=== PATIENT | female | born 1985 | race Caucasian/White ===

== ENCOUNTER 2017-04-13 16:32 | Inpatient (IN) | payer OTHER ==
[2017-04-13] MEDS: Lactated Ringers 1,000 ML IV SCH ×4 (17:35→23:02)
[2017-04-13] MEDS ORDERED: Nalbuphine 10 MG/1 ML Vial IVPUSH PRN ×2 (18:46→18:59)
[2017-04-13] MEDS ORDERED: Water For Irrigation,Sterile 1,000 ML Container IRR PRN ×2 (18:46→18:59)
[2017-04-13] MEDS ORDERED: Carboprost Tromethamine 250 MCG/1 ML Amp IM PRN ×2 (18:46→18:59)
[2017-04-13] MEDS ORDERED: Misoprostol 200 MCG Tab PO PRN ×2 (18:46→18:59)
[2017-04-13] MEDS ORDERED: Methylergonovine 0.2 MG/1 ML Amp IM PRN ×2 (18:46→18:59)
[2017-04-13] MEDS ORDERED: Lidocaine 1% 50 ML MDV INJECT PRN ×2 (18:46→18:59)
[2017-04-13] MEDS ORDERED: Terbutaline 1 MG/ML SDV SUBCUT PRN ×2 (18:46→18:59)
[2017-04-13] MEDS ORDERED: Sodium Chloride 0.9% 2.5 ML Syringe FLUSH PRN ×2 (18:46→18:59)
[2017-04-13] MEDS ORDERED: Butorphanol 1 MG/ML SDV IVPUSH PRN ×2 (18:46→18:59)
[2017-04-13] MEDS ORDERED: Sodium Chloride 0.9% 10 ML Syringe FLUSH PRN (18:46)
[2017-04-13] MEDS ORDERED: Oxytocin/Lactated Ringers 30 UNIT/500 ML BAG IV SCH ×4 (19:00)
[2017-04-13] MEDS ORDERED: Lactated Ringers 1,000 ML IV SCH (19:00)
[2017-04-13] MEDS ORDERED: Oxytocin/0.9 % Sodium Chloride 30 UNIT/500 ML BAG IV SCH (19:45)
[2017-04-13] MEDS ORDERED: fentaNYL 100 MCG/2 ML SDV ONE (20:59)
[2017-04-13] MEDS ORDERED: ePHEDrine 50 MG/ML SDV ONE (20:59)
[2017-04-13] MEDS ORDERED: Ropivacaine HCl/PF 100 ML ONE (21:00)
[2017-04-13] MEDS ORDERED: Ropivacaine 0.2% 2 MG/ML 20 ML SDV ONE (21:00)
--- NOTE | 2017-04-13 22:02 | PCM.PREANE ---
Preanesthetic Assessment - Anesthesia/Transfusion/Family Hx Anesthesia History: Prior Anesthesia Without Reaction (wisdom teeth) Family History of Anesthesia Reaction: No Transfusion History: No Prior Transfusion(s) - Review of Systems General: No Symptoms Pulmonary: No Symptoms Cardiovascular: No Symptoms Gastrointestinal: No Symptoms Neurological: No Symptoms - Physical Assessment NPO Status Date: 04/13/17 NPO Status Time: 21:57 (ice chips after epidural) O2 Sat by Pulse Oximetry: 95 Respiratory Rate: 16 Blood Pressure: 125/67 (see trace view) Height: 1.63 m Weight: 101.605 kg ASA Class: 2 Mental Status: Alert & Oriented x3 Airway Class: Mallampati = 2 Dentition: Reports: Normal Dentition Thyro-Mental Finger Breadths: 3 Mouth Opening Finger Breadths: 3 ROM/Head Extension: Full Lungs: Clear to Auscultation Cardiovascular: Regular Rate - Lab Values: Laboratory Last Values WBC 9.78 K/uL (4.0-11.0) 04/13/17 17:20 RBC 3.82 M/uL (4.30-5.90) L 04/13/17 17:20 Hgb 12.3 g/dL (12.0-16.0) 04/13/17 17:20 Hct 35.9 % (36.0-46.0) L 04/13/17 17:20 MCV 94.0 fL (80.0-98.0) 04/13/17 17:20 MCH 32.2 pg (27.0-32.0) H 04/13/17 17:20 MCHC 34.3 g/dL (31.0-37.0) 04/13/17 17:20 RDW Std Deviation 44.6 fl (28.0-62.0) 04/13/17 17:20 RDW Coeff of Ana Lilia 13 % (11.0-15.0) 04/13/17 17:20 Plt Count 164 K/uL (150-400) 04/13/17 17:20 MPV 10.90 fL (7.40-12.00) 04/13/17 17:20 Nucleated RBC % 0.0 /100WBC 04/13/17 17:20 Nucleated RBCs # 0 K/uL 04/13/17 17:20 INR 0.91 (0.86-1.11) 04/13/17 17:20 APTT 30.2 SEC (18.6-31.3) 04/13/17 17:20 Urine Color YELLOW 04/13/17 16:20 Urine Appearance CLEAR 04/13/17 16:20 Urine pH 6.0 (5.0-8.0) 04/13/17 16:20 Ur Specific [place] <= 1.005 (1.001-1.035) 04/13/17 16:20 Urine Protein NEGATIVE mg/dL (NEGATIVE) 04/13/17 16:20 Urine Glucose (UA) NEGATIVE mg/dL (NEGATIVE) 04/13/17 16:20 Urine Ketones NEGATIVE mg/dL (NEGATIVE) 04/13/17 16:20 Urine Occult Blood TRACE-INTACT (NEGATIVE) 04/13/17 16:20 Urine Nitrite NEGATIVE (NEGATIVE) 04/13/17 16:20 Urine Bilirubin NEGATIVE (NEGATIVE) 04/13/17 16:20 Urine Urobilinogen 0.2 EU/dL (<2.0) 04/13/17 16:20 Ur Leukocyte Esterase NEGATIVE (NEGATIVE) 04/13/17 16:20 Blood Type O POSITIVE 04/13/17 17:20 Antibody Screen NEGATIVE 04/13/17 17:20 - Allergies Allergies/Adverse Reactions: Allergies Allergy/AdvReac Type Severity Reaction Status Date / Time No Known Allergies Allergy Verified 04/13/17 16:31 - Blood Blood Available: Yes Product(s) Available: PRBC - Anesthesia Plan Pre-Op Medication Ordered: None - Acknowledgements Anesthesia Type Planned: Epidural Pt an Appropriate Candidate for the Planned Anesthesia: Yes Alternatives and Risks of Anesthesia Discussed w Pt/Guardian: Yes Pt/Guardian Understands and Agrees with Anesthesia Plan: Yes PreAnesthesia Questionnaire 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: , Spontaneous - CURRENT (IN HOUSE) MEDS Current Meds: Current Medications Butorphanol Tartrate (Stadol) 1 mg IVPUSH Q1H PRN PRN Reason: Pain Last Admin: 04/13/17 19:54 Dose: 1 mg Carboprost Tromethamine (Hemabate Ds) 250 mcg IM ASDIRECTED PRN PRN Reason: Post Hemorrhage Lactated Ringer's (Ringers, Lactated) 1,000 mls @ 150 mls/hr IV ASDIRECTED GOLD Last Admin: 04/13/17 21:32 Dose: 999 mls/hr Oxytocin/Sodium Chloride (Oxytocin 30 Unit/500 Ml-Ns) 30 unit in 500 mls @ 2 mls/hr IV TITRATE GOLD PRN Reason: Protocol Lidocaine HCl (Xylocaine 1%) 50 ml INJECT .ONCE PRN PRN Reason: Laceration repair Methylergonovine Maleate (Methergine) 0.2 mg IM ASDIRECTED PRN PRN Reason: Post Hemorrhage Misoprostol (Cytotec) 200 mcg PO .ONCE PRN PRN Reason: Post Hemorrhage Nalbuphine HCl (Nubain) 10 mg IVPUSH Q1H PRN PRN Reason: Pain (severe 7-10) Sodium Chloride (Saline Flush) 10 ml FLUSH ASDIRECTED PRN PRN Reason: Keep Vein Open Sodium Chloride (Saline Flush) 2.5 ml FLUSH ASDIRECTED PRN PRN Reason: Keep Vein Open Sterile Water (Sterile Water For Irrigation) 1,000 ml IRR ASDIRECTED PRN PRN Reason: delivery Terbutaline Sulfate (Brethine) 0.25 mg SUBCUT ASDIRECTED PRN PRN Reason: Tacysystole Discontinued Medications Butorphanol Tartrate (Stadol) 1 mg IVPUSH Q1H PRN PRN Reason: Pain Carboprost Tromethamine (Hemabate Ds) 250 mcg IM ASDIRECTED PRN PRN Reason: Post Hemorrhage Ephedrine Sulfate (Ephedrine Sulfate) Confirm Administered Dose 50 mg .ROUTE .STK-MED ONE Stop: 04/13/17 21:00 Fentanyl (Sublimaze) Confirm Administered Dose 300 mcg .ROUTE .STK-MED ONE Stop: 04/13/17 21:00 Oxytocin/Lactated Ringer's (Pitocin In Lr 30 Units/500 Ml) 30 unit in 500 mls @ 2 mls/hr IV TITRATE GOLD; 2 MUNITS/MIN PRN Reason: Protocol Lactated Ringer's (Ringers, Lactated) 1,000 mls @ 150 mls/hr IV ASDIRECTED GOLD Oxytocin/Lactated Ringer's (Pitocin In Lr 30 Units/500 Ml) 30 unit in 500 mls @ 999 mls/hr IV TITRATE GOLD PRN Reason: 999 MUNITS/MIN Stop: 04/13/17 19:31 Oxytocin/Lactated Ringer's (Pitocin In Lr 30 Units/500 Ml) 30 unit in 500 mls @ 2 mls/hr IV TITRATE GOLD; 2 MUNITS/MIN PRN Reason: Protocol Oxytocin/Lactated Ringer's (Pitocin In Lr 30 Units/500 Ml) 30 unit in 500 mls @ 999 mls/hr IV TITRATE GOLD PRN Reason: 999 MUNITS/MIN Stop: 04/13/17 19:31 Ropivacaine (Naropin 0.2%) Confirm Administered Dose 100 mls @ as directed .ROUTE .[facility] ONE Stop: 04/13/17 21:01 Lidocaine HCl (Xylocaine 1%) 50 ml INJECT .ONCE PRN PRN Reason: Laceration repair Methylergonovine Maleate (Methergine) 0.2 mg IM ASDIRECTED PRN PRN Reason: Post Hemorrhage Misoprostol (Cytotec) 200 mcg PO .ONCE PRN PRN Reason: Post Hemorrhage Nalbuphine HCl (Nubain) 10 mg IVPUSH Q1H PRN PRN Reason: Pain (severe 7-10) Ropivacaine (Naropin 0.2%) Confirm Administered Dose 20 ml .ROUTE .[facility] ONE Stop: 04/13/17 21:01 Sodium Chloride (Saline Flush) 10 ml FLUSH ASDIRECTED PRN PRN Reason: Keep Vein Open Sodium Chloride (Saline Flush) 2.5 ml FLUSH ASDIRECTED PRN PRN Reason: Keep Vein Open Sterile Water (Sterile Water For Irrigation) 1,000 ml IRR ASDIRECTED PRN PRN Reason: delivery Terbutaline Sulfate (Brethine) 0.25 mg SUBCUT ASDIRECTED PRN PRN Reason: Tacysystole
--- NOTE | 2017-04-13 22:12 | PCM.PRNOTE ---
- Free Text/Narrative Note: called to place epidural per patientt request for labor pain. pt interviewed, identified. Discussed epidural risks and expectations. These included nerve pain , nerve damage, bleeding, infection unsuccessful epidural placement. pt agrees. sitting up, sterile betadine prep times three with sterile drape. 1% lidocaine SQ at L4. os with small needle. L3 localized the same. #25 Touhy advanced with JEANNINE saline. no heme, no parasthesia. catheter easily placed taped 12 cm at skin , approximately 5 cm into space. test dose of 3 ml 1.5% lidocaine with epi 1:200 ,000 given with negative response. pt supine bolus dosed with 5 ml of 0.2% ropivicaine and 100 mcg fentanyl. level checked at T10 bilateral. Ropivicaine started at 10 ml/hr 0.2% with fentanyl 2 mcg/ml.
[2017-04-14] MEDS: Lactated Ringers 1,000 ML IV SCH ×4 (01:20→18:13)
[2017-04-14] MEDS ORDERED: fentaNYL 100 MCG/2 ML SDV ONE ×2 (02:06→05:05)
--- NOTE | 2017-04-14 02:45 | PCM.SN ---
- Free Text/Narrative Note: epidural level at approximately T6. infusion stopped for 30 minutes. Patient c/ o "cervix" pain. Fentanyl given via epidural. relief seen, but pt now c/o pressure low in perineal area. bp remains 96/40 asymptomatic. baby hr remains stable.
[2017-04-14] MEDS ORDERED: Lidocaine 2% 5 ML SDV ONE ×3 (04:21→05:49)
[2017-04-14] MEDS ORDERED: Oxytocin 10 Units/1 ML SDV ONE ×3 (04:21→05:46)
[2017-04-14] MEDS ORDERED: EPINEPHrine 1 MG/ML SDV ONE (04:21)
[2017-04-14] MEDS ORDERED: Propofol 200 MG/20 ML SDV ONE (04:22)
[2017-04-14] MEDS ORDERED: Morphine PF 10 MG/10 ML SDV ONE (04:56)
[2017-04-14] MEDS ORDERED: Midazolam 1 MG/ML 2 ML SDV ONE ×2 (05:10→05:24)
[2017-04-14] MEDS ORDERED: ceFAZolin 1 GM Vial ONE (05:11)
[2017-04-14] MEDS ORDERED: Phenylephrine/Normal Saline 100 MCG/ML 10 ML Syringe ONE (05:11)
[2017-04-14] MEDS ORDERED: ePHEDrine 50 MG/ML SDV ONE (05:11)
[2017-04-14] MEDS ORDERED: fentaNYL 100 MCG/2 ML SDV IVPUSH PRN (05:21)
[2017-04-14] MEDS ORDERED: Acetaminophen/oxyCODONE 325-5 MG Tab PO PRN ×3 (05:21→18:24)
[2017-04-14] MEDS ORDERED: Nalbuphine 10 MG/1 ML Vial IVPUSH PRN (05:21)
[2017-04-14] MEDS ORDERED: diphenhydrAMINE 50 MG/ML SDV IVPUSH PRN ×2 (05:21→07:05)
[2017-04-14] MEDS ORDERED: Ketamine 500 mg/10 ML MDV ONE (05:47)
[2017-04-14] MEDS ORDERED: Meperidine PF 25 MG/ML Syringe IM ONE (06:36)
[2017-04-14] MEDS ORDERED: Sodium Chloride 0.9% 20 ML ONE (06:58)
--- NOTE | 2017-04-14 07:02 | PCM.POSTAN ---
POST ANESTHESIA ASSESSMENT - MENTAL STATUS Mental Status: Alert - VITAL SIGNS Pulse Rate: 81 SaO2: 91 Resp Rate: 14 Blood Pressure: 108/53 Temperature: 37.1 C - RESPIRATORY Respiratory Status: Respiratory Rate WNL - CARDIOVASCULAR CV Status: Pulse Rate WNL - GASTROINTESTINAL GI Status: No Symptoms - POST OP HYDRATION Hydration Status: Adequate & Stable (pain level 1/10 with iv demerol. shaking also diminished)
[2017-04-14] MEDS ORDERED: Ondansetron 4 MG/2 ML SDV IV PRN (07:05)
[2017-04-14] MEDS ORDERED: Bisacodyl 10 MG Supp RECTAL PRN (07:05)
[2017-04-14] MEDS ORDERED: Lanolin 100% Cream 7 GM Tube TOP PRN (07:05)
[2017-04-14] MEDS: Ketorolac 30 MG/ML SDV IVPUSH SCH ×3 (07:48→19:59)
--- NOTE | 2017-04-14 12:12 | PCM.SN ---
<Ebenezer Han - Last Filed: 04/14/17 12:07> - Free Text/Narrative Note: S: Patient's pain has been well controlled with Toradal, has tolerated clear liquid and crackers without nausea. O: VS WNL, H/H 10.7/31.4 A: 31 y.o. female, 39/3 EGA, caesarean delivery P: Routine cares, dc andino per unit routine, continue current pain regimen, continue to support frequent ambulation and <Cyrus Boyce - Last Filed: 04/14/17 16:54> - Free Text/Narrative Note: Patient is s/p primary section today secondary to cat 2FHT. Patient also had early DIC probably secondary to concealed placenta abruption. Patient had hemorrhage with EBL estimate of 1500. PPH controlled with pitocin and uterine massage. Postop CBC stable from preop. APTT slightly elevated, Fibrinogen - decreasing slightly and . Platelets intially 138 preop , post op 140s. 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 ambulating. , tolerating regular diet. Plan: Regular diet Encourage ambulation Andino to monitor urine output IVF Pain control
[2017-04-14] MEDS: cefOXitin 2 GM in Premix Bag 1 BAG IV SCH ×2 (12:14→17:47)
--- NOTE | 2017-04-14 14:59 | PCM48HPAN ---
Post Anesthesia Note - EVALUATION WITHIN 48HRS OF ANESTHETIC Vital Signs in Normal Range: Yes Patient Participated in Evaluation: Yes Respiratory Function Stable: Yes Airway Patent: Yes Cardiovascular Function Stable: Yes Hydration Status Stable: Yes Pain Control Satisfactory: Yes Nausea and Vomiting Control Satisfactory: Yes Mental Status Recovered: Yes - COMMENTS/OBSERVATIONS Free Text/Narrative:: pt has been ambulating. pain tolerable
[2017-04-14] MEDS ORDERED: Acetaminophen/oxyCODONE 325-5 MG Tab ONE (18:27)
[2017-04-14] MEDS: Acetaminophen/oxyCODONE 325-5 MG Tab PO PRN (18:28)
[2017-04-14] MEDS: Docusate Sodium 100 MG Cap PO SCH ×2 (19:58→20:00)
[2017-04-15] MEDS: Ketorolac 30 MG/ML SDV IVPUSH SCH ×2 (01:48→07:56)
--- NOTE | 2017-04-15 04:15 | OR ---
DATE OF PROCEDURE: 04/14/2017 SURGEON: AMANDA RÍOS SMASHER: GAURANG FRANCES PREOPERATIVE DIAGNOSIS: A 31-year-old G3 P-1-0-1-1, at 39 weeks 2 days for induction of labor secondary to category 2 heart tracing, suspected placental abruption and probable early disseminated intravascular coagulation. POSTOPERATIVE DIAGNOSIS: A 31-year-old, now para 2, status post primary lower section for category 2 heart tracing, also with probable placental abruption and early disseminated intravascular coagulation. PROCEDURE: Primary lower transverse section. SMASHER: Gaurang. ESTIMATED BLOOD LOSS: 1500. COMPLICATIONS: hemorrhage. INTRAVENOUS FLUIDS: 1900. URINE OUTPUT: 800. FINDINGS: A live male delivered at 5:05 a.m., scores were 9 and 9, weight was 3890 grams. Placenta with 3-vessel cord. HISTORY: A 31-year-old G3 P-1-0-1-1, presented at 39 weeks 2 days complaining of vaginal spotting. The patient was noted to have late decelerations on tracing and as a result was admitted for induction of labor for category 2 heart tracing. Induction of labor was started at 5:43 p.m. The patient was noted to be 1, 60, -4. She had a Rodriguez bulb placed and was subsequently 4, 80, -2 at 8:45 p.m. The patient then made change to 6, 80, -3 at 3:00 a.m. and Pitocin was started after the Rodriguez bulb came out. The patient was noted to have late decelerations. As a result, Pitocin was held and tracing recovered, but however started again. The patient also had serial CBCs to rule out placental abruption or concealed abruption, and Hb was noted to be declining from 12.3 to 11.2 to 10.4. Platelet also decreased from 164 to 150 to 138. APTT increased from 30 to 31.6 to 32.1. The blood pressure was ranging from 90s to 120 over 50s to 60. The patient had to get multiple doses of IV boluses to sustain blood pressure. As a result of this and category 2 heart tracing, the patient was informed of the benefit of section to improve maternal and well being. The patient accepted for the procedure. DESCRIPTION OF PROCEDURE: The patient was taken to the operating room and the epidural was topped up. The patient was prepared and draped in the sterile fashion. A Pfannenstiel skin incision was made with scalpel and carried down to the fascia with Bovie. The fascia was grasped with the Toby clamp and from the rectus muscles superiorly and inferiorly. The rectus muscle was then in the midline down to the pubic symphysis. The peritoneum was then entered in bluntly and pulled upward to expose the bladder reflection. The Michi retractor was then placed in to expose the bladder and the uterus. A uterine incision was made and it was extended upwards and downwards. The fetus was then brought to the incision and it was delivered with the aid of fundal pressure. The cord was clamped and cut. 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 The placenta was then delivered intact and the Pitocin was started for uterine tone. The uterus was sutured in 2 layers and hemostasis was noted. Then, the gutters were cleaned. The peritoneum was then sutured with 2-0 Vicryl. Then, the fascia was also sutured with 0 Vicryl in a continuous fashion. The subcutaneous fat was then sutured also, and the skin was closed with 3-0 Vicryl on a Kofi needle, and all instrument and pad counts were correct x2. Dr. Ríos was present for the entire procedure. The patient was taken to the recovery room in stable condition. PAMELA LINARES /[id number]
--- NOTE | 2017-04-15 07:26 | PCM.PNPP ---
<HanEbenezer - Last Filed: 04/15/17 07:27> - General Info Date of Service: 04/15/17 Admission Dx/Problem (Free Text): 31 y.o. female, EGA 39/2, induction of delivery secondary to category 2 heart tracing, suspected placental abruption, probable early DIC, caesarean delivery Subjective Update: Pt is feeling well today. Having some pain with ambulation but is well controlled with Toradol. Pt is without difficulty. Pt has voided but has not had a bowel movement. Pt is passing flatus. Non foul smelling lochia is decreasing. Pt denies fever, chills, shortness of breath, and chest pain. Functional Status: Reports: Pain Controlled, Tolerating Diet, Ambulating, Urinating - Review of Systems General: Reports: No Symptoms Pulmonary: Reports: No Symptoms Cardiovascular: Reports: No Symptoms Gastrointestinal: Reports: No Symptoms Genitourinary: Reports: No Symptoms - General Info Date of Service: 04/15/17 - Patient Data Vital Signs - Most Recent: Last Vital Signs Temp 36.6 C 04/15/17 03:45 Pulse 92 04/15/17 03:45 Resp 16 04/15/17 05:00 BP 100/65 04/15/17 03:45 Pulse Ox 95 04/15/17 05:00 Weight - Most Recent: 224 lb I&O - Last 24 Hours: Intake & Output 04/14/17 04/15/17 04/15/17 22:59 06:59 14:59 Intake Total 1850 1780 Output Total 2500 1300 Balance -650 480 Lab Results - Last 24 Hours: Laboratory Results - last 24 hr 04/14/17 04/14/17 04/14/17 Range/Units 16:06 16:06 16:06 WBC 12.91 H (4.0-11.0) K/uL RBC 2.85 L (4.30-5.90) M/uL Hgb 9.1 L (12.0-16.0) g/dL Hct 27.1 L (36.0-46.0) % MCV 95.1 (80.0-98.0) fL MCH 31.9 (27.0-32.0) pg MCHC 33.6 (31.0-37.0) g/dL RDW Std Deviation 45.8 (28.0-62.0) fl RDW Coeff of Ana Lilia 13 (11.0-15.0) % Plt Count 137 L (150-400) K/uL MPV 10.80 (7.40-12.00) fL Nucleated RBC % 0.0 /100WBC Nucleated RBCs # 0 K/uL INR 1.01 (0.86-1.11) APTT 37.7 H (18.6-31.3) SEC Fibrinogen 324 (215-411) mg/dL 04/15/17 Range/Units 05:37 WBC (4.0-11.0) K/uL RBC (4.30-5.90) M/uL Hgb 9.1 L (12.0-16.0) g/dL Hct 27.0 L (36.0-46.0) % MCV (80.0-98.0) fL MCH (27.0-32.0) pg MCHC (31.0-37.0) g/dL RDW Std Deviation (28.0-62.0) fl RDW Coeff of Ana Lilia (11.0-15.0) % Plt Count (150-400) K/uL MPV (7.40-12.00) fL Nucleated RBC % /100WBC Nucleated RBCs # K/uL INR (0.86-1.11) APTT (18.6-31.3) SEC Fibrinogen (215-411) mg/dL Med Orders - Current: Current Medications Bisacodyl (Dulcolax) 10 mg RECTAL .ONCE PRN PRN Reason: Constipation Butorphanol Tartrate (Stadol) 1 mg IVPUSH Q1H PRN PRN Reason: Pain Last Admin: 04/13/17 19:54 Dose: 1 mg Carboprost Tromethamine (Hemabate Ds) 250 mcg IM ASDIRECTED PRN PRN Reason: Post Hemorrhage Diphenhydramine HCl (Benadryl) 25 mg IVPUSH Q6H PRN PRN Reason: Itching or Nausea Docusate Sodium (Colace) 100 mg PO BID GOLD Last Admin: 04/14/17 20:00 Dose: 100 mg Emollient Ointment (Lansinoh Hpa) 0 gm TOP ASDIRECTED PRN PRN Reason: Sore Nipples Last Admin: 04/15/17 01:47 Dose: 1 tube Lactated Ringer's (Ringers, Lactated) 1,000 mls @ 150 mls/hr IV ASDIRECTED [facility] Last Admin: 04/14/17 02:41 Dose: 150 mls/hr Oxytocin/Sodium Chloride (Oxytocin 30 Unit/500 Ml-Ns) 30 unit in 500 mls @ 2 mls/hr IV TITRATE [facility] PRN Reason: Protocol Last Titration: 04/14/17 03:52 Dose: 0 mls/hr, 0 mls/hr Lactated Ringer's (Ringers, Lactated) 1,000 mls @ 125 mls/hr IV ASDIRECTED [facility] Last Admin: 04/14/17 18:13 Dose: 125 mls/hr Ibuprofen (Motrin) 800 mg PO Q8H PRN PRN Reason: mild pain or fever Ketorolac Tromethamine (Toradol) 30 mg IVPUSH Q6H [facility] Stop: 04/15/17 08:01 Last Admin: 04/15/17 01:48 Dose: 30 mg Lidocaine HCl (Xylocaine 1%) 50 ml INJECT .ONCE PRN PRN Reason: Laceration repair Methylergonovine Maleate (Methergine) 0.2 mg IM ASDIRECTED PRN PRN Reason: Post Hemorrhage Misoprostol (Cytotec) 200 mcg PO .ONCE PRN PRN Reason: Post Hemorrhage Nalbuphine HCl (Nubain) 10 mg IVPUSH Q1H PRN PRN Reason: Pain (severe 7-10) Ondansetron HCl (Zofran) 4 mg IV Q4H PRN PRN Reason: Nausea/Vomiting Oxycodone/Acetaminophen (Percocet 325-5 Mg) 2 tab PO Q4H PRN PRN Reason: Pain (moderate 4-6) Oxycodone/Acetaminophen (Percocet 325-5 Mg) 1 tab PO Q4H PRN PRN Reason: Pain (moderate 4-6) Last Admin: 04/14/17 18:28 Dose: 1 tab Oxycodone/Acetaminophen (Percocet 325-5 Mg) 2 tab PO Q4H PRN PRN Reason: Pain Sodium Chloride (Saline Flush) 10 ml FLUSH ASDIRECTED PRN PRN Reason: Keep Vein Open Sodium Chloride (Saline Flush) 2.5 ml FLUSH ASDIRECTED PRN PRN Reason: Keep Vein Open Sterile Water (Sterile Water For Irrigation) 1,000 ml IRR ASDIRECTED PRN PRN Reason: delivery Terbutaline Sulfate (Brethine) 0.25 mg SUBCUT ASDIRECTED PRN PRN Reason: Tacysystole Discontinued Medications Butorphanol Tartrate (Stadol) 1 mg IVPUSH Q1H PRN PRN Reason: Pain Carboprost Tromethamine (Hemabate Ds) 250 mcg IM ASDIRECTED PRN PRN Reason: Post Hemorrhage Cefazolin Sodium (Ancef) Confirm Administered Dose 2 gm .ROUTE .STK-MED ONE Stop: 04/14/17 05:12 Diphenhydramine HCl (Benadryl) 25 mg IVPUSH Q4H PRN PRN Reason: Itching Stop: 04/15/17 05:22 Ephedrine Sulfate (Ephedrine Sulfate) Confirm Administered Dose 50 mg .ROUTE .STK-MED ONE Stop: 04/13/17 21:00 Ephedrine Sulfate (Ephedrine Sulfate) Confirm Administered Dose 50 mg .ROUTE .STK-MED ONE Stop: 04/14/17 05:12 Epinephrine HCl (Adrenalin 1:1000) Confirm Administered Dose 1 mg .ROUTE .STK- MED ONE Stop: 04/14/17 04:22 Fentanyl (Sublimaze) Confirm Administered Dose 300 mcg .ROUTE .STK-MED ONE Stop: 04/13/17 21:00 Fentanyl (Sublimaze) Confirm Administered Dose 100 mcg .ROUTE .STK-MED ONE Stop: 04/14/17 02:07 Fentanyl (Sublimaze) Confirm Administered Dose 100 mcg .ROUTE .STK-MED ONE Stop: 04/14/17 05:06 Fentanyl (Sublimaze) 50 mcg IVPUSH Q5M PRN PRN Reason: Pain (severe 7-10) Stop: 04/15/17 05:22 Last Admin: 04/14/17 10:41 Dose: 50 mcg Oxytocin/Lactated Ringer's (Pitocin In Lr 30 Units/500 Ml) 30 unit in 500 mls @ 2 mls/hr IV TITRATE GOLD; 2 MUNITS/MIN PRN Reason: Protocol Lactated Ringer's (Ringers, Lactated) 1,000 mls @ 150 mls/hr IV ASDIRECTED GOLD Oxytocin/Lactated Ringer's (Pitocin In Lr 30 Units/500 Ml) 30 unit in 500 mls @ 999 mls/hr IV TITRATE GOLD PRN Reason: 999 MUNITS/MIN Stop: 04/13/17 19:31 Oxytocin/Lactated Ringer's (Pitocin In Lr 30 Units/500 Ml) 30 unit in 500 mls @ 2 mls/hr IV TITRATE GOLD; 2 MUNITS/MIN PRN Reason: Protocol Oxytocin/Lactated Ringer's (Pitocin In Lr 30 Units/500 Ml) 30 unit in 500 mls @ 999 mls/hr IV TITRATE GOLD PRN Reason: 999 MUNITS/MIN Stop: 04/13/17 19:31 Ropivacaine (Naropin 0.2%) Confirm Administered Dose 100 mls @ as directed .ROUTE .STK-MED ONE Stop: 04/13/17 21:01 Sodium Chloride (Normal Saline) Confirm Administered Dose 20 mls @ as directed .ROUTE .STK-MED ONE Stop: 04/14/17 06:59 Cefoxitin Sodium 2 gm/ Premix 50 mls @ 100 mls/hr IV Q6H GOLD Stop: 04/14/17 18:00 Last Admin: 04/14/17 17:47 Dose: 100 mls/hr Ketamine HCl (Ketalar) Confirm Administered Dose 500 mg .ROUTE .STK-MED ONE Stop: 04/14/17 05:48 Lidocaine (Xylocaine-Mpf 2%) Confirm Administered Dose 15 ml .ROUTE .STK-MED ONE Stop: 04/14/17 04:22 Lidocaine (Xylocaine-Mpf 2%) Confirm Administered Dose 5 ml .ROUTE .STK-MED ONE Stop: 04/14/17 05:12 Lidocaine (Xylocaine-Mpf 2%) Confirm Administered Dose 5 ml .ROUTE .STK-MED ONE Stop: 04/14/17 05:50 Lidocaine HCl (Xylocaine 1%) 50 ml INJECT .ONCE PRN PRN Reason: Laceration repair Meperidine HCl (Demerol) 25 mg IM ONETIME ONE Stop: 04/14/17 06:37 Last Admin: 04/14/17 06:43 Dose: 25 mg Methylergonovine Maleate (Methergine) 0.2 mg IM ASDIRECTED PRN PRN Reason: Post Hemorrhage Midazolam HCl (Versed 1 Mg/Ml) Confirm Administered Dose 2 mg .ROUTE .STK-MED ONE Stop: 04/14/17 05:11 Midazolam HCl (Versed 1 Mg/Ml) Confirm Administered Dose 2 mg .ROUTE .STK-MED ONE Stop: 04/14/17 05:25 Misoprostol (Cytotec) 200 mcg PO .ONCE PRN PRN Reason: Post Hemorrhage Morphine Sulfate (Duramorph Pf) Confirm Administered Dose 10 mg .ROUTE .STK-MED ONE Stop: 04/14/17 04:57 Nalbuphine HCl (Nubain) 10 mg IVPUSH Q1H PRN PRN Reason: Pain (severe 7-10) Nalbuphine HCl (Nubain) 5 mg IVPUSH Q3H PRN PRN Reason: Pruritis Stop: 04/15/17 05:22 Oxycodone/Acetaminophen (Percocet 325-5 Mg) 1 tab PO ONETIME PRN PRN Reason: Pain (moderate 4-6) Oxycodone/Acetaminophen (Percocet 325-5 Mg) 1 tab PO Q4H PRN PRN Reason: Pain (moderate 4-6) Oxycodone/Acetaminophen (Percocet 325-5 Mg) Confirm Administered Dose 1 tab .ROUTE .STK-MED ONE Stop: 04/14/17 18:28 Last Admin: 04/14/17 19:24 Dose: Not Given Oxytocin (Pitocin) Confirm Administered Dose 20 unit .ROUTE .STK-MED ONE Stop: 04/14/17 04:22 Oxytocin (Pitocin) Confirm Administered Dose 10 unit .ROUTE .STK-MED ONE Stop: 04/14/17 05:20 Oxytocin (Pitocin) Confirm Administered Dose 20 unit .ROUTE .STK-MED ONE Stop: 04/14/17 05:47 Phenylephrine HCl (Phenylephrine In Ns 100 Mcg/Ml) Confirm Administered Dose 1 mg .ROUTE .STK-MED ONE Stop: 04/14/17 05:12 Propofol (Diprivan 20 Ml) Confirm Administered Dose 200 mg .ROUTE .STK-MED ONE Stop: 04/14/17 04:23 Ropivacaine (Naropin 0.2%) Confirm Administered Dose 20 ml .ROUTE .STK-MED ONE Stop: 04/13/17 21:01 Sodium Chloride (Saline Flush) 10 ml FLUSH ASDIRECTED PRN PRN Reason: Keep Vein Open Sodium Chloride (Saline Flush) 2.5 ml FLUSH ASDIRECTED PRN PRN Reason: Keep Vein Open Sterile Water (Sterile Water For Irrigation) 1,000 ml IRR ASDIRECTED PRN PRN Reason: delivery Terbutaline Sulfate (Brethine) 0.25 mg SUBCUT ASDIRECTED PRN PRN Reason: Tacysystole Tranexamic Acid (Cyklokapron) 2,000 mg .ROUTE .STK-MED ONE Stop: 04/14/17 05:06 - Interaction Disposition, : in Room with Family Interaction: Holding Infant Feeding: Breastfed Infant; Nursed Well Support Person: Significant Other - Recovery Exam Fundal Tone: Firm Fundal Level: 1 Fingerbreadths Below Umbilicus Fundal Placement: Midline Lochia Amount: Scant Lochia Color: Rubra/Red Perineum Description: Intact, Minimal Bruising/Swelling Episiotomy/Laceration: None Bladder Status: Voiding Urinary Elimination: Voided - Exam General: Alert, Oriented Lungs: Clear to Auscultation, Normal Respiratory Effort. No: Rales, Rhonchi, Rub Cardiovascular: Regular Rate, Regular Rhythm. No: Murmurs, Gallops, Rubs GI/Abdominal Exam: Normal Bowel Sounds, Soft (Uterus firm, midline, fundus 1cm below umbilucs) Wound/Incisions: Dressing Dry and Intact - Problem List & Annotations (1) delivery due to maternal disorder SNOMED Code(s): 959158341 Code(s): XTM4690 - Status: Acute Current Visit: Yes - Problem List Review Problem List Initiated/Reviewed/Updated: Yes - Assessment Assessment:: 31 y.o. female EGA 39/2 caesarean delivery secondary to category 2 heart tracing, suspected placental abruption, and probable early DIC, postop day #1 Pain is well controlled Tolerating diet well Voiding H/H and platelets stable - Plan Plan:: Continue routine cares. Daily H/H and platelets. Monitor vital signs. Continue current pain management. Continue to support frequent ambulation and . Colace for constipation. <Rosa Ng - Last Filed: 04/15/17 13:02> - Patient Data Vital Signs - Most Recent: Last Vital Signs Temp 36.9 C 04/15/17 07:44 Pulse 95 04/15/17 07:44 Resp 18 04/15/17 07:44 BP 94/60 04/15/17 07:44 Pulse Ox 98 04/15/17 07:44 I&O - Last 24 Hours: Intake & Output 04/14/17 04/15/17 04/15/17 22:59 06:59 14:59 Intake Total 1850 1780 Output Total 2500 1300 300 Balance -650 480 -300 Lab Results - Last 24 Hours: Laboratory Results - last 24 hr 04/14/17 04/14/17 04/14/17 Range/Units 16:06 16:06 16:06 WBC 12.91 H (4.0-11.0) K/uL RBC 2.85 L (4.30-5.90) M/uL Hgb 9.1 L (12.0-16.0) g/dL Hct 27.1 L (36.0-46.0) % MCV 95.1 (80.0-98.0) fL MCH 31.9 (27.0-32.0) pg MCHC 33.6 (31.0-37.0) g/dL RDW Std Deviation 45.8 (28.0-62.0) fl RDW Coeff of Ana Lilia 13 (11.0-15.0) % Plt Count 137 L (150-400) K/uL MPV 10.80 (7.40-12.00) fL Nucleated RBC % 0.0 /100WBC Nucleated RBCs # 0 K/uL INR 1.01 (0.86-1.11) APTT 37.7 H (18.6-31.3) SEC Fibrinogen 324 (215-411) mg/dL 04/15/17 Range/Units 05:37 WBC (4.0-11.0) K/uL RBC (4.30-5.90) M/uL Hgb 9.1 L (12.0-16.0) g/dL Hct 27.0 L (36.0-46.0) % MCV (80.0-98.0) fL MCH (27.0-32.0) pg MCHC (31.0-37.0) g/dL RDW Std Deviation (28.0-62.0) fl RDW Coeff of Ana Lilia (11.0-15.0) % Plt Count (150-400) K/uL MPV (7.40-12.00) fL Nucleated RBC % /100WBC Nucleated RBCs # K/uL INR (0.86-1.11) APTT (18.6-31.3) SEC Fibrinogen (215-411) mg/dL Med Orders - Current: Current Medications Bisacodyl (Dulcolax) 10 mg RECTAL .ONCE PRN PRN Reason: Constipation Butorphanol Tartrate (Stadol) 1 mg IVPUSH Q1H PRN PRN Reason: Pain Last Admin: 04/13/17 19:54 Dose: 1 mg Carboprost Tromethamine (Hemabate Ds) 250 mcg IM ASDIRECTED PRN PRN Reason: Post Hemorrhage Diphenhydramine HCl (Benadryl) 25 mg IVPUSH Q6H PRN PRN Reason: Itching or Nausea Docusate Sodium (Colace) 100 mg PO BID [facility] Last Admin: 04/15/17 08:47 Dose: 100 mg Emollient Ointment (Lansinoh Hpa) 0 gm TOP ASDIRECTED PRN PRN Reason: Sore Nipples Last Admin: 04/15/17 01:47 Dose: 1 tube Lactated Ringer's (Ringers, Lactated) 1,000 mls @ 150 mls/hr IV ASDIRECTED [facility] Last Admin: 04/14/17 02:41 Dose: 150 mls/hr Oxytocin/Sodium Chloride (Oxytocin 30 Unit/500 Ml-Ns) 30 unit in 500 mls @ 2 mls/hr IV TITRATE [facility] PRN Reason: Protocol Last Titration: 04/14/17 03:52 Dose: 0 mls/hr, 0 mls/hr Lactated Ringer's (Ringers, Lactated) 1,000 mls @ 125 mls/hr IV ASDIRECTED [facility] Last Admin: 04/14/17 18:13 Dose: 125 mls/hr Ibuprofen (Motrin) 800 mg PO Q8H PRN PRN Reason: mild pain or fever Lidocaine HCl (Xylocaine 1%) 50 ml INJECT .ONCE PRN PRN Reason: Laceration repair Methylergonovine Maleate (Methergine) 0.2 mg IM ASDIRECTED PRN PRN Reason: Post Hemorrhage Misoprostol (Cytotec) 200 mcg PO .ONCE PRN PRN Reason: Post Hemorrhage Nalbuphine HCl (Nubain) 10 mg IVPUSH Q1H PRN PRN Reason: Pain (severe 7-10) Ondansetron HCl (Zofran) 4 mg IV Q4H PRN PRN Reason: Nausea/Vomiting Oxycodone/Acetaminophen (Percocet 325-5 Mg) 2 tab PO Q4H PRN PRN Reason: Pain (moderate 4-6) Oxycodone/Acetaminophen (Percocet 325-5 Mg) 1 tab PO Q4H PRN PRN Reason: Pain (moderate 4-6) Last Admin: 04/14/17 18:28 Dose: 1 tab Oxycodone/Acetaminophen (Percocet 325-5 Mg) 2 tab PO Q4H PRN PRN Reason: Pain Sodium Chloride (Saline Flush) 10 ml FLUSH ASDIRECTED PRN PRN Reason: Keep Vein Open Last Admin: 04/15/17 07:58 Dose: 10 ml Sodium Chloride (Saline Flush) 2.5 ml FLUSH ASDIRECTED PRN PRN Reason: Keep Vein Open Sterile Water (Sterile Water For Irrigation) 1,000 ml IRR ASDIRECTED PRN PRN Reason: delivery Terbutaline Sulfate (Brethine) 0.25 mg SUBCUT ASDIRECTED PRN PRN Reason: Tacysystole Discontinued Medications Butorphanol Tartrate (Stadol) 1 mg IVPUSH Q1H PRN PRN Reason: Pain Carboprost Tromethamine (Hemabate Ds) 250 mcg IM ASDIRECTED PRN PRN Reason: Post Hemorrhage Cefazolin Sodium (Ancef) Confirm Administered Dose 2 gm .ROUTE .STK-MED ONE Stop: 04/14/17 05:12 Diphenhydramine HCl (Benadryl) 25 mg IVPUSH Q4H PRN PRN Reason: Itching Stop: 04/15/17 05:22 Ephedrine Sulfate (Ephedrine Sulfate) Confirm Administered Dose 50 mg .ROUTE .STK-MED ONE Stop: 04/13/17 21:00 Ephedrine Sulfate (Ephedrine Sulfate) Confirm Administered Dose 50 mg .ROUTE .STK-MED ONE Stop: 04/14/17 05:12 Epinephrine HCl (Adrenalin 1:1000) Confirm Administered Dose 1 mg .ROUTE .STK- MED ONE Stop: 04/14/17 04:22 Fentanyl (Sublimaze) Confirm Administered Dose 300 mcg .ROUTE .STK-MED ONE Stop: 04/13/17 21:00 Fentanyl (Sublimaze) Confirm Administered Dose 100 mcg .ROUTE .STK-MED ONE Stop: 04/14/17 02:07 Fentanyl (Sublimaze) Confirm Administered Dose 100 mcg .ROUTE .STK-MED ONE Stop: 04/14/17 05:06 Fentanyl (Sublimaze) 50 mcg IVPUSH Q5M PRN PRN Reason: Pain (severe 7-10) Stop: 04/15/17 05:22 Last Admin: 04/14/17 10:41 Dose: 50 mcg Oxytocin/Lactated Ringer's (Pitocin In Lr 30 Units/500 Ml) 30 unit in 500 mls @ 2 mls/hr IV TITRATE GOLD; 2 MUNITS/MIN PRN Reason: Protocol Lactated Ringer's (Ringers, Lactated) 1,000 mls @ 150 mls/hr IV ASDIRECTED GOLD Oxytocin/Lactated Ringer's (Pitocin In Lr 30 Units/500 Ml) 30 unit in 500 mls @ 999 mls/hr IV TITRATE GOLD PRN Reason: 999 MUNITS/MIN Stop: 04/13/17 19:31 Oxytocin/Lactated Ringer's (Pitocin In Lr 30 Units/500 Ml) 30 unit in 500 mls @ 2 mls/hr IV TITRATE GOLD; 2 MUNITS/MIN PRN Reason: Protocol Oxytocin/Lactated Ringer's (Pitocin In Lr 30 Units/500 Ml) 30 unit in 500 mls @ 999 mls/hr IV TITRATE GOLD PRN Reason: 999 MUNITS/MIN Stop: 04/13/17 19:31 Ropivacaine (Naropin 0.2%) Confirm Administered Dose 100 mls @ as directed .ROUTE .STK-MED ONE Stop: 04/13/17 21:01 Sodium Chloride (Normal Saline) Confirm Administered Dose 20 mls @ as directed .ROUTE .STK-MED ONE Stop: 04/14/17 06:59 Cefoxitin Sodium 2 gm/ Premix 50 mls @ 100 mls/hr IV Q6H GOLD Stop: 04/14/17 18:00 Last Admin: 04/14/17 17:47 Dose: 100 mls/hr Ketamine HCl (Ketalar) Confirm Administered Dose 500 mg .ROUTE .STK-MED ONE Stop: 04/14/17 05:48 Ketorolac Tromethamine (Toradol) 30 mg IVPUSH Q6H GOLD Stop: 04/15/17 08:01 Last Admin: 04/15/17 07:56 Dose: 30 mg Lidocaine (Xylocaine-Mpf 2%) Confirm Administered Dose 15 ml .ROUTE .STK-MED ONE Stop: 04/14/17 04:22 Lidocaine (Xylocaine-Mpf 2%) Confirm Administered Dose 5 ml .ROUTE .STK-MED ONE Stop: 04/14/17 05:12 Lidocaine (Xylocaine-Mpf 2%) Confirm Administered Dose 5 ml .ROUTE .STK-MED ONE Stop: 04/14/17 05:50 Lidocaine HCl (Xylocaine 1%) 50 ml INJECT .ONCE PRN PRN Reason: Laceration repair Meperidine HCl (Demerol) 25 mg IM ONETIME ONE Stop: 04/14/17 06:37 Last Admin: 04/14/17 06:43 Dose: 25 mg Methylergonovine Maleate (Methergine) 0.2 mg IM ASDIRECTED PRN PRN Reason: Post Hemorrhage Midazolam HCl (Versed 1 Mg/Ml) Confirm Administered Dose 2 mg .ROUTE .STK-MED ONE Stop: 04/14/17 05:11 Midazolam HCl (Versed 1 Mg/Ml) Confirm Administered Dose 2 mg .ROUTE .STK-MED ONE Stop: 04/14/17 05:25 Misoprostol (Cytotec) 200 mcg PO .ONCE PRN PRN Reason: Post Hemorrhage Morphine Sulfate (Duramorph Pf) Confirm Administered Dose 10 mg .ROUTE .STK-MED ONE Stop: 04/14/17 04:57 Nalbuphine HCl (Nubain) 10 mg IVPUSH Q1H PRN PRN Reason: Pain (severe 7-10) Nalbuphine HCl (Nubain) 5 mg IVPUSH Q3H PRN PRN Reason: Pruritis Stop: 04/15/17 05:22 Oxycodone/Acetaminophen (Percocet 325-5 Mg) 1 tab PO ONETIME PRN PRN Reason: Pain (moderate 4-6) Oxycodone/Acetaminophen (Percocet 325-5 Mg) 1 tab PO Q4H PRN PRN Reason: Pain (moderate 4-6) Oxycodone/Acetaminophen (Percocet 325-5 Mg) Confirm Administered Dose 1 tab .ROUTE .STK-MED ONE Stop: 04/14/17 18:28 Last Admin: 04/14/17 19:24 Dose: Not Given Oxytocin (Pitocin) Confirm Administered Dose 20 unit .ROUTE .STK-MED ONE Stop: 04/14/17 04:22 Oxytocin (Pitocin) Confirm Administered Dose 10 unit .ROUTE .STK-MED ONE Stop: 04/14/17 05:20 Oxytocin (Pitocin) Confirm Administered Dose 20 unit .ROUTE .STK-MED ONE Stop: 04/14/17 05:47 Phenylephrine HCl (Phenylephrine In Ns 100 Mcg/Ml) Confirm Administered Dose 1 mg .ROUTE .STK-MED ONE Stop: 04/14/17 05:12 Propofol (Diprivan 20 Ml) Confirm Administered Dose 200 mg .ROUTE .STK-MED ONE Stop: 04/14/17 04:23 Ropivacaine (Naropin 0.2%) Confirm Administered Dose 20 ml .ROUTE .STK-MED ONE Stop: 04/13/17 21:01 Sodium Chloride (Saline Flush) 10 ml FLUSH ASDIRECTED PRN PRN Reason: Keep Vein Open Sodium Chloride (Saline Flush) 2.5 ml FLUSH ASDIRECTED PRN PRN Reason: Keep Vein Open Sterile Water (Sterile Water For Irrigation) 1,000 ml IRR ASDIRECTED PRN PRN Reason: delivery Terbutaline Sulfate (Brethine) 0.25 mg SUBCUT ASDIRECTED PRN PRN Reason: Tacysystole Tranexamic Acid (Cyklokapron) 2,000 mg .ROUTE .STValidus DC Systems-MED ONE Stop: 04/14/17 05:06 - Assessment Assessment:: Above note reviewed - Plan Plan:: Patient stable. Will stop daily H/H and platelets. Remove saline lock and continue routine post op care. Aim for discharge tomorrow as long clinically stable.
[2017-04-15] MEDS: Sodium Chloride 0.9% 10 ML Syringe FLUSH PRN ×3 (07:55→07:58)
[2017-04-15] MEDS: Docusate Sodium 100 MG Cap PO SCH ×2 (08:47→20:28)
--- NOTE | 2017-04-15 11:08 | OR ---
SURGEON: AMANDA BOYCE DATE OF PROCEDURE: ASSISTED BY: medical student. PREOPERATIVE DIAGNOSIS: A 31-year-old 3, para 1-0-1-1 at 39 weeks and 2 days for primary low transverse for category 2 heart tracing and suspected placental abruption and early DIC. POSTOPERATIVE DIAGNOSIS: A 31-year-old, now para 2, status post primary low transverse for category 2 heart tracing and placental abruption, probably early DIC. EBL: 1500. COMPLICATIONS: hemorrhage. IV FLUID: 1900. URINE OUTPUT: 800. FINDING: Live male delivered at 0505 hours, score was 9 and 9, EBL was 1500, IV fluid was 1900, urine output 800, weight of the baby is 3890 g, placenta was delivered, three-vessel cord noted. HISTORY: This was a 31-year-old G3, P1-0-1-1 at 39 weeks and 2 days, who presented with history of vaginal spotting. Upon evaluation, the patient was noted to have deceleration and was admitted for induction of labor secondary to category 2 heart tracing. Induction of labor for the patient was started with a Rodriguez, she was 1, 60, -4. After the Rodriguez, she was 4, 80, -2. She then may change to 6, 80, -3. However, the patient was noted to have some late deceleration and the Pitocin was held at that time. She was put in left lateral position. Oxygen was given. . With regard to the placental abruption, the patient had serial CBCs and coags done and there was a declining trend in the CBC she started from 12.3, repeat hemoglobin was 11.2 followed by 10.4. The platelet count was also noted to be going down from 164 to 150 to 138. The activated partial thromboplastin time (APTT) was also increasing 30 to 31.6 and 32. The blood pressure of the patient was ranging between 90 to 120 over 50 to 60, so she had to be maintained on boluses. The patient was then consented for secondary to category 2 heart tracing and probably placental abruption and early DIC. The patient understood risks, benefits, and alternatives and was willing to proceed with the procedure. DESCRIPTION OF PROCEDURE: The patient was taken to the operating room and had the epidural topped up. The patient was prepared and draped in the normal sterile fashion. The patient had a Pfannenstiel skin incision and the skin incision was made with the scalpel and carried down to the fascia with Bovie. The fascia was grabbed with Toby clamp and from the rectus muscle superiorly and inferiorly. The rectus muscle was then in the midline down to the pubic symphysis. The peritoneum was then entered bluntly and intraabdominal peritoneal fluid. The Michi retractor was then placed in and was secured. The bladder flap was then created with Metzenbaum and smooth pickups. The uterine incision was made and was extended laterally. The was in vertex position and the head was elevated for the incision with fundi pressure. The head was delivered subsequently with the shoulder and the body. The cord was clamped and cut. The baby was handed over to the awaiting sand caster apprentice. The cord blood was then taken. The placenta was then removed. The uterine massage was then done and the uterus was found to be so the Pitocin was given. Another extra dose was incision was then sutured in 2 layers and the incision was found to be hemostatic. Then the peritoneum was closed with 2-0 Vicryl. The fascia was closed with 0 Vicryl. The subcutaneous fat was also closed and the skin was closed with subcutaneous incision with 3-0 Vicryl on the Kofi needle. The instrument and pad counts were correct x2. The incision was then dressed with Steri-Strip and the dressing. The uterus was then manually expressed and suctioned. The patient was then taken to the operating room within stable condition. Dr. Boyce was present for the entire procedure. PAMELA LINARES /[id number]
[2017-04-15] MEDS: Acetaminophen/oxyCODONE 325-5 MG Tab PO PRN ×2 (13:10→20:27)
[2017-04-15] MEDS: Ibuprofen 800 MG Tab PO PRN (18:20)
[2017-04-16] MEDS: Ibuprofen 800 MG Tab PO PRN ×2 (03:39→12:45)
[2017-04-16 08:26] VITALS: BP 102/55
[2017-04-16] MEDS: Docusate Sodium 100 MG Cap PO SCH (09:16)
[2017-04-16] MEDS: Acetaminophen/oxyCODONE 325-5 MG Tab PO PRN ×2 (09:17→12:45)
--- NOTE | 2017-04-16 12:37 | PCM.PNPP ---
- General Info Date of Service: 04/16/17 Functional Status: Reports: Pain Controlled, Tolerating Diet, Ambulating, Urinating - Review of Systems General: Denies: Fever, Weakness, Malaise, Chills Pulmonary: Denies: Shortness of Breath, Pleuritic Chest Pain Cardiovascular: Denies: Chest Pain, Palpitations, Dyspnea on Exertion Gastrointestinal: Denies: Abdominal Pain Genitourinary: Denies: Dysuria, Incontinence, Flank Pain Psychiatric: Denies: Depression, Anxiety - General Info Date of Service: 04/16/17 - Patient Data Vital Signs - Most Recent: Last Vital Signs Temp 36.9 C 04/16/17 08:07 Pulse 101 H 04/16/17 08:07 Resp 16 04/16/17 08:07 BP 102/55 L 04/16/17 08:07 Pulse Ox 98 04/16/17 08:07 Weight - Most Recent: 224 lb Lab Results - Last 24 Hours: Laboratory Results - last 24 hr 04/13/17 Range/Units 17:20 Blood Type O POSITIVE Antibody Screen NEGATIVE Crossmatch See Detail Med Orders - Current: Current Medications Bisacodyl (Dulcolax) 10 mg RECTAL .ONCE PRN PRN Reason: Constipation Butorphanol Tartrate (Stadol) 1 mg IVPUSH Q1H PRN PRN Reason: Pain Last Admin: 04/13/17 19:54 Dose: 1 mg Carboprost Tromethamine (Hemabate Ds) 250 mcg IM ASDIRECTED PRN PRN Reason: Post Hemorrhage Diphenhydramine HCl (Benadryl) 25 mg IVPUSH Q6H PRN PRN Reason: Itching or Nausea Docusate Sodium (Colace) 100 mg PO BID [facility] Last Admin: 04/16/17 09:16 Dose: 100 mg Emollient Ointment (Lansinoh Hpa) 0 gm TOP ASDIRECTED PRN PRN Reason: Sore Nipples Last Admin: 04/15/17 01:47 Dose: 1 tube Lactated Ringer's (Ringers, Lactated) 1,000 mls @ 150 mls/hr IV ASDIRECTED [facility] Last Admin: 04/14/17 02:41 Dose: 150 mls/hr Oxytocin/Sodium Chloride (Oxytocin 30 Unit/500 Ml-Ns) 30 unit in 500 mls @ 2 mls/hr IV TITRATE [facility] PRN Reason: Protocol Last Titration: 04/14/17 03:52 Dose: 0 mls/hr, 0 mls/hr Lactated Ringer's (Ringers, Lactated) 1,000 mls @ 125 mls/hr IV ASDIRECTED GOLD Last Admin: 04/14/17 18:13 Dose: 125 mls/hr Ibuprofen (Motrin) 800 mg PO Q8H PRN PRN Reason: mild pain or fever Last Admin: 04/16/17 03:39 Dose: 800 mg Lidocaine HCl (Xylocaine 1%) 50 ml INJECT .ONCE PRN PRN Reason: Laceration repair Methylergonovine Maleate (Methergine) 0.2 mg IM ASDIRECTED PRN PRN Reason: Post Hemorrhage Misoprostol (Cytotec) 200 mcg PO .ONCE PRN PRN Reason: Post Hemorrhage Nalbuphine HCl (Nubain) 10 mg IVPUSH Q1H PRN PRN Reason: Pain (severe 7-10) Ondansetron HCl (Zofran) 4 mg IV Q4H PRN PRN Reason: Nausea/Vomiting Oxycodone/Acetaminophen (Percocet 325-5 Mg) 2 tab PO Q4H PRN PRN Reason: Pain (moderate 4-6) Last Admin: 04/16/17 09:17 Dose: 2 tab Oxycodone/Acetaminophen (Percocet 325-5 Mg) 1 tab PO Q4H PRN PRN Reason: Pain (moderate 4-6) Last Admin: 04/15/17 13:10 Dose: 1 tab Oxycodone/Acetaminophen (Percocet 325-5 Mg) 2 tab PO Q4H PRN PRN Reason: Pain Last Admin: 04/16/17 05:09 Dose: 2 tab Sodium Chloride (Saline Flush) 10 ml FLUSH ASDIRECTED PRN PRN Reason: Keep Vein Open Last Admin: 04/15/17 07:58 Dose: 10 ml Sodium Chloride (Saline Flush) 2.5 ml FLUSH ASDIRECTED PRN PRN Reason: Keep Vein Open Sterile Water (Sterile Water For Irrigation) 1,000 ml IRR ASDIRECTED PRN PRN Reason: delivery Terbutaline Sulfate (Brethine) 0.25 mg SUBCUT ASDIRECTED PRN PRN Reason: Tacysystole Discontinued Medications Butorphanol Tartrate (Stadol) 1 mg IVPUSH Q1H PRN PRN Reason: Pain Carboprost Tromethamine (Hemabate Ds) 250 mcg IM ASDIRECTED PRN PRN Reason: Post Hemorrhage Cefazolin Sodium (Ancef) Confirm Administered Dose 2 gm .ROUTE .STK-MED ONE Stop: 04/14/17 05:12 Diphenhydramine HCl (Benadryl) 25 mg IVPUSH Q4H PRN PRN Reason: Itching Stop: 04/15/17 05:22 Ephedrine Sulfate (Ephedrine Sulfate) Confirm Administered Dose 50 mg .ROUTE .STK-MED ONE Stop: 04/13/17 21:00 Ephedrine Sulfate (Ephedrine Sulfate) Confirm Administered Dose 50 mg .ROUTE .STK-MED ONE Stop: 04/14/17 05:12 Epinephrine HCl (Adrenalin 1:1000) Confirm Administered Dose 1 mg .ROUTE .STK- MED ONE Stop: 04/14/17 04:22 Fentanyl (Sublimaze) Confirm Administered Dose 300 mcg .ROUTE .STK-MED ONE Stop: 04/13/17 21:00 Fentanyl (Sublimaze) Confirm Administered Dose 100 mcg .ROUTE .STK-MED ONE Stop: 04/14/17 02:07 Fentanyl (Sublimaze) Confirm Administered Dose 100 mcg .ROUTE .STK-MED ONE Stop: 04/14/17 05:06 Fentanyl (Sublimaze) 50 mcg IVPUSH Q5M PRN PRN Reason: Pain (severe 7-10) Stop: 04/15/17 05:22 Last Admin: 04/14/17 10:41 Dose: 50 mcg Oxytocin/Lactated Ringer's (Pitocin In Lr 30 Units/500 Ml) 30 unit in 500 mls @ 2 mls/hr IV TITRATE GOLD; 2 MUNITS/MIN PRN Reason: Protocol Lactated Ringer's (Ringers, Lactated) 1,000 mls @ 150 mls/hr IV ASDIRECTED GOLD Oxytocin/Lactated Ringer's (Pitocin In Lr 30 Units/500 Ml) 30 unit in 500 mls @ 999 mls/hr IV TITRATE GOLD PRN Reason: 999 MUNITS/MIN Stop: 04/13/17 19:31 Oxytocin/Lactated Ringer's (Pitocin In Lr 30 Units/500 Ml) 30 unit in 500 mls @ 2 mls/hr IV TITRATE GOLD; 2 MUNITS/MIN PRN Reason: Protocol Oxytocin/Lactated Ringer's (Pitocin In Lr 30 Units/500 Ml) 30 unit in 500 mls @ 999 mls/hr IV TITRATE GOLD PRN Reason: 999 MUNITS/MIN Stop: 04/13/17 19:31 Ropivacaine (Naropin 0.2%) Confirm Administered Dose 100 mls @ as directed .ROUTE .STK-MED ONE Stop: 04/13/17 21:01 Sodium Chloride (Normal Saline) Confirm Administered Dose 20 mls @ as directed .ROUTE .STK-MED ONE Stop: 04/14/17 06:59 Cefoxitin Sodium 2 gm/ Premix 50 mls @ 100 mls/hr IV Q6H [facility] Stop: 04/14/17 18:00 Last Admin: 04/14/17 17:47 Dose: 100 mls/hr Ketamine HCl (Ketalar) Confirm Administered Dose 500 mg .ROUTE .STK-MED ONE Stop: 04/14/17 05:48 Ketorolac Tromethamine (Toradol) 30 mg IVPUSH Q6H [facility] Stop: 04/15/17 08:01 Last Admin: 04/15/17 07:56 Dose: 30 mg Lidocaine (Xylocaine-Mpf 2%) Confirm Administered Dose 15 ml .ROUTE .STK-MED ONE Stop: 04/14/17 04:22 Lidocaine (Xylocaine-Mpf 2%) Confirm Administered Dose 5 ml .ROUTE .STK-MED ONE Stop: 04/14/17 05:12 Lidocaine (Xylocaine-Mpf 2%) Confirm Administered Dose 5 ml .ROUTE .STK-MED ONE Stop: 04/14/17 05:50 Lidocaine HCl (Xylocaine 1%) 50 ml INJECT .ONCE PRN PRN Reason: Laceration repair Meperidine HCl (Demerol) 25 mg IM ONETIME ONE Stop: 04/14/17 06:37 Last Admin: 04/14/17 06:43 Dose: 25 mg Methylergonovine Maleate (Methergine) 0.2 mg IM ASDIRECTED PRN PRN Reason: Post Hemorrhage Midazolam HCl (Versed 1 Mg/Ml) Confirm Administered Dose 2 mg .ROUTE .STK-MED ONE Stop: 04/14/17 05:11 Midazolam HCl (Versed 1 Mg/Ml) Confirm Administered Dose 2 mg .ROUTE .STK-MED ONE Stop: 04/14/17 05:25 Misoprostol (Cytotec) 200 mcg PO .ONCE PRN PRN Reason: Post Hemorrhage Morphine Sulfate (Duramorph Pf) Confirm Administered Dose 10 mg .ROUTE .STK-MED ONE Stop: 04/14/17 04:57 Nalbuphine HCl (Nubain) 10 mg IVPUSH Q1H PRN PRN Reason: Pain (severe 7-10) Nalbuphine HCl (Nubain) 5 mg IVPUSH Q3H PRN PRN Reason: Pruritis Stop: 04/15/17 05:22 Oxycodone/Acetaminophen (Percocet 325-5 Mg) 1 tab PO ONETIME PRN PRN Reason: Pain (moderate 4-6) Oxycodone/Acetaminophen (Percocet 325-5 Mg) 1 tab PO Q4H PRN PRN Reason: Pain (moderate 4-6) Oxycodone/Acetaminophen (Percocet 325-5 Mg) Confirm Administered Dose 1 tab .ROUTE .STK-MED ONE Stop: 04/14/17 18:28 Last Admin: 04/14/17 19:24 Dose: Not Given Oxytocin (Pitocin) Confirm Administered Dose 20 unit .ROUTE .STK-MED ONE Stop: 04/14/17 04:22 Oxytocin (Pitocin) Confirm Administered Dose 10 unit .ROUTE .STK-MED ONE Stop: 04/14/17 05:20 Oxytocin (Pitocin) Confirm Administered Dose 20 unit .ROUTE .STK-MED ONE Stop: 04/14/17 05:47 Phenylephrine HCl (Phenylephrine In Ns 100 Mcg/Ml) Confirm Administered Dose 1 mg .ROUTE .STK-MED ONE Stop: 04/14/17 05:12 Propofol (Diprivan 20 Ml) Confirm Administered Dose 200 mg .ROUTE .STK-MED ONE Stop: 04/14/17 04:23 Ropivacaine (Naropin 0.2%) Confirm Administered Dose 20 ml .ROUTE .STK-MED ONE Stop: 04/13/17 21:01 Sodium Chloride (Saline Flush) 10 ml FLUSH ASDIRECTED PRN PRN Reason: Keep Vein Open Sodium Chloride (Saline Flush) 2.5 ml FLUSH ASDIRECTED PRN PRN Reason: Keep Vein Open Sterile Water (Sterile Water For Irrigation) 1,000 ml IRR ASDIRECTED PRN PRN Reason: delivery Terbutaline Sulfate (Brethine) 0.25 mg SUBCUT ASDIRECTED PRN PRN Reason: Tacysystole Tranexamic Acid (Cyklokapron) 2,000 mg .ROUTE .STK-MED ONE Stop: 04/14/17 05:06 - Infant Interaction Infant Disposition, : in Room with Family Infant Interaction: Holding Infant Infant Feeding: Breastfed ; Nursed Well Support Person: - Recovery Exam Fundal Tone: Firm Fundal Level: 1 Fingerbreadths Below Umbilicus Fundal Placement: Midline Lochia Amount: Scant Lochia Color: Rubra/Red Perineum Description: Intact, Minimal Bruising/Swelling Episiotomy/Laceration: None Bladder Status: Voiding Urinary Elimination: Voided - Exam General: Alert, Oriented Lungs: Clear to Auscultation, Normal Respiratory Effort Cardiovascular: Regular Rate, Regular Rhythm GI/Abdominal Exam: Soft Extremities: Non-Tender, Pedal Edema Skin: Warm Wound/Incisions: Healing Well Psy/Mental Status: Alert, Normal Affect, Normal Mood - Problem List Review Problem List Initiated/Reviewed/Updated: Yes - Assessment Assessment:: POD#2 s/p emergency Primary C/S for NRFHT Patient is doing well and clinically stable for discharge - Plan Plan:: Discharge instructions reviewed with patient Incision care reviewed Bleeding and infection precautions discussed Nothing in the vagina for 6 weeks Follow up in 2 and 6 weeks in the clinic
== END 2017-04-16 13:45 | disposition home or self-care (01) | DRG 766 ==
LOC: MW.OBCHECK 16:32 → MW.OB 18:47 → OBSVTOIN 04-14 05:02 → MW.OB 04-14 06:52
PROVIDERS: ADMIT Obstetrics & Gynecology; ATTEND Obstetrics & Gynecology
PROC: 10D00Z1 Extraction of Products of Conception, Low, Open Approach (ICD-10-PCS; principal; 2017-04-14)
PROC: 4A1H7CZ Monitoring of Products of Conception, Cardiac Rate, Via Natural or Artificial Opening (ICD-10-PCS; 2017-04-14)
PROC: 0U7C7ZZ Dilation of Cervix, Via Natural or Artificial Opening (ICD-10-PCS; 2017-04-14)
PROC: 3E033VJ Introduction of Other Hormone into Peripheral Vein, Percutaneous Approach (ICD-10-PCS; 2017-04-14)
DX: O45.023 Premature separation of placenta with disseminated intravascular coagulation, third trimester (principal); K59.00 Constipation, unspecified; Z37.0 Single live birth; Z3A.39 39 weeks gestation of pregnancy
CPT/HCPCS: 01967; 01968; 36415; 51702; 59025; 59200; 59899; 81003; 85014; 85018; 85027; 85384; 85610; 85730; 86850; 86900; 86901; 88307; A9270-GY; J0171; J0595; J0690; J1885; J2175; J2250; J2270; J2590; J2704; J2795; J3010; J7120